=== PATIENT | male | born 1980 | race Hispanic/Latino ===

== ENCOUNTER 2024-06-01 15:21 | Emergency (ER) | payer SELFPAY ==
[2024-06-01 15:29] VITALS: BP 143/83
[2024-06-01] MEDS: ADACEL 0.5 ML IM (17:31)
--- NOTE | 2024-06-01 17:39 | ED.SKININJ ---
HPI-Injury
General
Chief Complaint: Skin Surface Trauma
Source: patient
Exam Limitations: none
Time Seen by Provider: 06/01/24 16:06
Nursing documentation reviewed up to this point in time: agreed with
History of Present Illness-Injury
Is this injury a work related problem?: Yes
Is pt an associate of [facility]?: No
Initial Injury comments:
Patient states he was carrying a toilet and it broke. Cut by broken piece of porcelain. Has large laceration to right leg just above knee. Injury occurred just [employer]
Past History
Past History
ED Past Medical History: Seizures and Other
ED Past Surgical History: None
Social History
Tobacco: Non-smoker
Alcohol: Binge drinker
Drug: None
Personal: Single
Living: with family
Employment: Employed
Review of Systems
Review of Systems
Allergies reviewed?: Yes
All Other Systems: ROS reviewed and negative except as documented in HPI and ROS
Constitutional: Reports no symptoms
Musculoskeletal: Reports no symptoms
Skin: Reports other (laceration to right leg above knee)
Neurological: Reports no symptoms
Psychiatric: Reports no symptoms
Skin Exam
Laceration
Right Leg:
Length in cm: 8
Orientation: vertical
Type of Laceration: layered
Any active bleeding?: low grade venous oozing
Distal skin color and temperature: normal-warm & good color
Normal distal neurovascular exam: Yes
Range of motion: full
Phy Exam
General Physical Exam
General Presentation: well appearing and no apparent distress
General age: appears stated age
General Skin: warm and dry
General Habitus: normal
General Mental: alert
Musculoskeletal Exam
Musculoskeletal Exam: full ROM and neuro vasc intact
Skin Exam
Skin Exam: normal color, warm/dry and no rash
Psychiatric Exam
Psychiatric Exam: normal mood/affect
Course
Orders/Labs/Results
Orders:
Orders
06/01/24 16:23
Knee, Right 4 or More Views [CR Knee- Right 4 Or More View*] Urgent
Comment:
Reason For Exam: laceration, possible FB
06/01/24 17:25
Tetanus/Diphth/Acelpertussis [Adacel] 0.5 ml IM .ONCE ONE
Vital Signs
Initial and Last Documented VS:
Initial Vital Signs
Temp Pulse Resp BP Pulse Ox
97.7 F 80 16 143/83 98
06/01/24 15:29 06/01/24 15:29 06/01/24 15:29 06/01/24 15:29 06/01/24 15:29
Last Documented Vital Signs
Temp Pulse Resp BP Pulse Ox
97.7 F 80 16 143/83 98
06/01/24 15:29 06/01/24 15:29 06/01/24 15:29 06/01/24 15:29 06/01/24 15:29
Procedures
Laceration Closure
Right Leg:
Status of Wound: clean
Description of Wound Edges: sharp
Preparation: cleaned with saline and cleaned with Betadine
Anesthesia: 1% Lidocaine with epi
Revision/Debridement: routine- no revision and irrigate-direct pressure
Wound exploration: explored to base- no FB and no tendon involvement
Type of Closure: layered closure
Skin Closure Material: 4-0 prolene and 4-0 chromic gut
*Radiology
Radiology exam reviewed: radiology read reviewed
*Critical Care Note
Total Time (30-74mins, 75-104mins- exclusive of procedures): Not Applicable
ED Attending Note
-
Portions of this chart may have been created with voice recognition software.� Occasional wrong word or��sound alike� substitutions may have occurred due to the inherent limitations of voice recognition software.
Discharge Plan
Departure
Patient Disposition: Home (Routine Discharge)
Date of Disposition: 06/01/24
Time of Disposition: 17:37
Patient with high blood pressure during this ER visit?: No
Condition: Good
Covid-19: Not Applicable
Discharge Problem:
Knee laceration
Instructions: Laceration Repair With Stitches ED, Laceration
Prescriptions:
New
cephalexin 500 mg capsule
500 mg PO BID 10 Days Qty: 20 0RF
No Action
levetiracetam 500 MG tablet
1,500 mg PO BID Qty: 360 0RF
Patient Comments:
pt states he only takes 2 capsules 2 times a day
Referrals:
UNKNOWN - PT DOES,NOT KNOW [Family Provider] -
Activity Restrictions/Additional Instructions:
Sutures can be removed in 7-10 days by your family doctor.
Interventions
Interventions:
*Risk Screen - Suicide Last Done: 06/01/24 15:29
*General Assessment Last Done: 06/01/24 15:29
*Neglect/Abuse Screening Last Done: 06/01/24 15:29
ED- Fall Risk Assessment Last Done: 06/01/24 15:38
ED-Skin Assessment Last Done: 06/01/24 15:38
Discharge Date and Time
Print Language: WOLOF
== END 2024-06-01 17:55 | disposition home or self-care (01) ==
LOC: EMR 15:21
PROVIDERS: EMERGENCY PHYSICIAN Emergency Medicine
DX: S81.811A Laceration without foreign body, right lower leg, initial encounter (principal); W26.9XXA Contact with unspecified sharp object(s), initial encounter; Z23 Encounter for immunization
CPT/HCPCS: 99283; 12004; 90471; 73564; 90715

== ENCOUNTER 2024-06-10 13:53 | Emergency (ER) | payer SELFPAY ==
[2024-06-10 13:54] VITALS: BP 127/84
--- NOTE | 2024-06-10 15:23 | ED.GENMED ---
History of Present Illness
General
Chief Complaint: Skin Surface Trauma
Source: patient
Exam Limitations: none
Time Seen by Provider: 06/10/24 14:06
Nursing documentation reviewed up to this point in time: agreed with
History of Present Illness
History of Present Illness:
Patient is a 43 year old male presenting to the emergency department for suture removal. Patient was seen in emergency department 9 days ago following mechanical fall where he received sutures on his right knee. Patient states wound is healing
well. He denies any significant pain, swelling, redness of incision. Patient denies any fevers, chills. Patient has been keeping wound covered, clean and dry. Patient did complete 1 week of antibiotic therapy as prescribed by provider at last
visit.
No other concerns today
Past History
Past History
ED Past Medical History: Seizures and Other
ED Past Surgical History: None
Social History
Tobacco: Non-smoker
Alcohol: Binge drinker
Drug: None
Personal: Single
Living: with family
Employment: Employed
Review of Systems
Review of Systems
Allergies reviewed?: Yes
All Other Systems: ROS reviewed and negative except as documented in HPI and ROS
Phy Exam
Physical Exam
Physical Exam:
Vitals: Patient's vital signs are stable. Afebrile
General: Patient is well appearing, no acute distress. Nontoxic-appearing
Skin: Well-healing linear laceration of right anterior knee with mild surrounding erythema. No edema, purulent drainage, or red streaking surrounding wound. [address] simple [address] place.
Head: Normocephalic, atraumatic
Throat: Protecting airway
Neck: Normal ROM, no cervical spine tenderness
Cardiac: Regular rate
Pulm: No apparent respiratory distress
Abdomen: Nondistended
Extremities: Healing laceration to right anterior knee as described above.
Neuro: Grossly intact
Psychiatric: Normal affect.
Course
Vital Signs
Initial and Last Documented VS:
Initial Vital Signs
Temp Pulse Resp BP Pulse Ox
98.7 F 87 18 127/84 98
06/10/24 13:54 06/10/24 13:54 06/10/24 13:54 06/10/24 13:54 06/10/24 13:54
Last Documented Vital Signs
Temp Pulse Resp BP Pulse Ox
98.7 F 87 18 127/84 98
06/10/24 13:54 06/10/24 13:54 06/10/24 13:54 06/10/24 13:54 06/10/24 13:54
MDM/Problems Addressed
Differential Diagnosis Includes:
Not limited to: Suture removal
MDM/Problems Addressed:
43-year-old male presenting for suture removal of right knee. Patient did complete antibiotic course as prescribed by prior emergency medicine provider. Patient denies any fever, chills, significant pain, redness, swelling of left knee. Physical
exam as above. Patient is well-appearing, in no apparent distress. He is nontoxic-appearing. There is a well-healing linear laceration of right anterior knee without any signs of cellulitis. 9 simple interrupted [address] in place. Area was
cleaned with alcohol swab, sutures removed without any complication. Patient tolerated procedure well. Will apply antibiotic ointment, cover with Band-Aid. Did review wound care instructions with patient at length including monitoring for signs
infection. Advised to keep covered until skin completely healed. All questions answered. Patient comfortable with plan. Patient stable for discharge
Chronic conditions affecting care:
N/A
Acute Exacerbation and/or Progression of Chronic Illness:
N/A
*Pulse Oximetry
Patient hypoxic: no
*EKG
Interpreted by ED Provider?: NA
*Efficiency Clerk Interpretation
Rate: Efficiency Clerk- N/A
*Critical Care Note
Total Time (30-74mins, 75-104mins- exclusive of procedures): Not Applicable
ED Attending Note
-
Portions of this chart may have been created with voice recognition software.� Occasional wrong word or��sound alike� substitutions may have occurred due to the inherent limitations of voice recognition software.
Discharge Plan
Departure
Patient Disposition: Home (Routine Discharge)
Date of Disposition: 06/10/24
Time of Disposition: 14:34
Patient with high blood pressure during this ER visit?: No
Covid-19: Not Applicable
Discharge Problem:
Encounter for removal of sutures
Instructions: Wound Care (DC)
Prescriptions:
No Action
levetiracetam 500 MG tablet
1,500 mg PO BID Qty: 360 0RF
Patient Comments:
pt states he only takes 2 capsules 2 times a day
cephalexin 500 mg capsule
500 mg PO BID 10 Days Qty: 20 0RF
Referrals:
NONE,* [Family Provider] -
Stand Alone Forms: Return to Work
Activity Restrictions/Additional Instructions:
RETURN TO THE EMERGENCY DEPARTMENT WITH ANY SIGNS OF INFECTION INCLUDING FEVERS, CHILLS, SIGNIFICANT PAIN, REDNESS, OR SWELLING AROUND WOUND, RED STREAKING AWAY FROM WOUND, PUS DRAINING FROM WOUND, OR ANY OTHER CONCERNS
-As discussed -you should keep wound clean and dry. You can apply topical antibiotic ointment. Keep covered until skin is completely healed especially while at work.
-Be diligent with sun protection.
-Monitor closely for signs of infection and return with any acute worsening/new symptoms.
Interventions
Interventions:
*Risk Screen - Suicide Last Done: 06/10/24 14:43
*General Assessment Last Done: 06/10/24 14:43
*Neglect/Abuse Screening Last Done: 06/10/24 14:43
ED- Fall Risk Assessment Last Done: 06/10/24 14:43
*ED COVID-19 Vaccine History Last Done: 06/10/24 14:44
*Nursing Disposition Last Done: 06/10/24 14:49
ED-Skin Assessment Last Done: 06/10/24 14:43
Discharge Date and Time
Discharge Date/Time: 06/10/24 14:49
Print Language: AMERICAN
== END 2024-06-10 14:49 | disposition home or self-care (01) ==
LOC: EMR 13:53
PROVIDERS: EMERGENCY PHYSICIAN Emergency Medicine
DX: S81.011D Laceration without foreign body, right knee, subsequent encounter (principal); W19.XXXD Unspecified fall, subsequent encounter
CPT/HCPCS: 99281